=== PATIENT | female | born 1975 | race Caucasian/White ===

== ENCOUNTER → 2017-01-25 | Outpatient (CLI) | payer OTHER ==
--- NOTE | 2017-01-26 06:49 | US ---
EXAMINATION TYPE: US parathyroid/thyroid st tissue head/neck DATE OF EXAM: 01/25/2017 COMPARISON: NONE CLINICAL HISTORY: E83.52 ELEVATED CALCIUMparathyroid US THYROID GLAND SIZE: Right Lobe: 4.7 x 1.8 x 1.2 cm Overall Parenchyma: heterogenous Left Lobe: 3.9 x 1.6 x 1.0 cm Overall Parenchyma: heterogeneous Isthmus Thickness: 0.3 cm THYROID NODULES RIGHT: # of nodules measured on right: 1 1. 0.2 X 0.2 x 0.2 cm hypoechoic cystic nodule at the upper pole with well-defined margins. This n odule is wide as is tall and shows no intranodular vascularity. Prior size: no previous LEFT: # of nodules measured on left: 0 ISTHMUS: # of nodules measured in the isthmus: 0 PARATHYROID SURVEY: No Parathyroid glands are seen by US. Bilateral neck scanned, no evidence of lymphadenopathy. Thyroid gland is normal in size and heterogeneous in appearance, tiny nodule is seen in the right thy roid lobe. No suspicious extra thyroid nodules are seen to suggest parathyroid adenoma. IMPRESSION: No worrisome adjacent parathyroid nodules are seen to suggest parathyroid adenoma.
== END | disposition home or self-care (01) ==
LOC: RADUSWWP 16:57
PROVIDERS: ATTEND Internal Medicine
DX: E83.52 Hypercalcemia (principal)
CPT/HCPCS: 76536

== ENCOUNTER → 2023-08-27 | Outpatient (CLI) | payer MEDICARE, OTHER ==
--- NOTE | 2023-08-27 11:42 | MM ---
Reason for Exam: Follow-up of a probably benign lesion. Patient History: Menarche at age 13. Patient has no children. Premenopausal. Hormonal Contraceptives for 10 years from age 21 until age 31. 1989, Bilateral Reduction. Mother had breast cancer, age 55. Risk Values: Anastasia 5 year model risk: 1.7%. NCI Lifetime model risk: 17.5%. Staff Notes: BASELINE STUDY. Tissue Density: There are scattered areas of fibroglandular density. Findings: Analyzed By CAD. Nodular density upper outer right breast approximately 13 cm from the nipple measuring 9 mm. Ultrasound recommended. No nodules within the left breast. No suspicious calcifications present. Overall Assessment: Incomplete: need additional imaging evaluation, BI-RAD 0 Management: Diagnostic Breast Ultrasound of the right breast. . Results were given to the patient verbally at the time of exam. Patient should continue monthly self-breast exams. A clinical breast exam by your physician is recommended on an annual basis. This exam should not preclude additional follow-up of suspicious palpable abnormalities. Note on Anastasia scores and lifetime risk: 1. A Anastasia score greater than 3% is considered moderate risk. If this is the case, consider specialist referral to assess eligibility for a risk reducing agent. 2. If overall lifetime risk for the development of breast cancer is 20% or higher, the patient may qualify for future screening with alternating mammogram and breast MRI. Electronically signed and approved by: John Bee M.D. Radiologis
--- NOTE | 2023-08-27 12:32 | USB ---
Patient History: Menarche at age 13. Patient has no children. Premenopausal. Hormonal Contraceptives for 10 years from age 21 until age 31. 1990, Bilateral Reduction. Mother had breast cancer, age 55. Risk Values: Anastasia 5 year model risk: 1.7%. NCI Lifetime model risk: 17.5%. Technique: Method: Targeted. Findings: The upper outer quadrant of the right breast, the axilla of the right breast and the retroareolar of the right breast were scanned. No solid or cystic masses are identified.. Overall Assessment: Probably benign, BI-RAD 3 Management: Diagnostic Mammogram of the right breast in 6 months. A clinical breast exam by your physician is recommended on an annual basis and results should be correlated with mammographic findings. This exam should not preclude additional follow-up of suspicious palpable abnormalities. Results were given to the patient verbally at the time of exam. Electronically signed and approved by: John Bee M.D. Radiologis
== END | disposition home or self-care (01) ==
LOC: RADMAMWWP 09:54
PROVIDERS: ATTEND Internal Medicine Geriatric Medicine
DX: Z12.31 Encounter for screening mammogram for malignant neoplasm of breast (principal); Z80.3 Family history of malignant neoplasm of breast
CPT/HCPCS: 77066; 76642; G0279; 77062

== ENCOUNTER 2023-11-23 09:19 | Day surgery (SDC) | payer MEDICARE, OTHER ==
[2023-11-17 16:14] VITALS: BMI 29.2
[~2023-11-23 09:19] MED LIST: LIDOCAINE 1% (10MG/ML) FOR IV START INTRADERMA PRN
[2023-11-23] MEDS: IV FLUID CONTINUATION 1,000 ML IV ONE (09:55)
[2023-11-23 10:10] VITALS: TEMP 96.7
[2023-11-23] MEDS: LACTATED RINGERS 1,000 ML IV SCH (10:12)
[2023-11-23 10:17] LABS: Glucose,Whole Blood 99 mg/dL (70-110)
[2023-11-23] MEDS ORDERED: PROPOFOL 10 MG/ML 20 ML VIAL IV ONE (10:36)
--- NOTE | 2023-11-23 10:38 | P.GSHP ---
History of Present Illness H&P Date: 11/23/23 Chief Complaint: Colon cancer screening 48-year-old female here for colonoscopy. No bowel complaints. No family history of colon cancer. She has not had a colonoscopy in the past. Past Medical History Past Medical History: Eye Disorder, Hyperlipidemia, Musculoskeletal Disorder Additional Past Medical History / Comment(s): BLIND IN BOTH EYES. 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 MULTIPLE EYE SURGERIES-HAS BILAT ARTIFICAL EYES. Z-CUT RT ANKLE. GROWTH PLATE TURNED LT KNEE Past Anesthesia/Blood Transfusion Reactions: Postoperative Nausea & Vomiting (PONV) Smoking Status: Never smoker - Past Family History Mother Family Medical History: Cancer Additional Family Medical History / Comment(s): BREAST Father History Unknown: Yes Family Medical History: Unable to Obtain Medications and Allergies Home Medications Medication Instructions Recorded Confirmed Type Ergocalciferol [Vitamin D2 (1250 1,250 mcg PO Q14D 11/17/23 11/23/23 History Mcg = [id number] Iu)] Janine-Eye Drops 1 drop BOTH EYES TID PRN 11/17/23 11/23/23 History Neomycin/Polymyxin B/Dexametha 1 drop BOTH EYES BID PRN 11/17/23 11/23/23 History [Maxitrol Ophth Susp] Pravastatin Sodium [Pravachol] 40 mg PO HS 11/17/23 11/23/23 History Allergies Allergy/AdvReac Type Severity Reaction Status Date / Time ketorolac Allergy Rash/Hives Verified 11/23/23 10:10 Surgical - Exam Vital Signs Temp Pulse Resp BP Pulse Ox 96.7 F L 87 18 158/78 96 11/23/23 10:11/23/23 10:00 11/23/23 10:11/23/23 10:11/23/23 10:00 Physical exam: General: Well-developed, well-nourished HEENT: Normocephalic, sclerae nonicteric Abdomen: Nontender, nondistended Extremities: No edema Neuro: Alert and oriented Assessment and Plan (1) Colon cancer screening Narrative/Plan: Will proceed with colonoscopy at this time. Current Visit: Yes Status: Acute Code(s): Z12.11 - ENCOUNTER FOR SCREENING FOR MALIGNANT NEOPLASM OF COLON SNOMED Code(s): 799357335
--- NOTE | 2023-11-23 10:51 | P.PCN ---
Date of Procedure: 11/23/23 Procedure(s) Performed: PREOPERATIVE DIAGNOSIS: Colon cancer screening POSTOPERATIVE DIAGNOSIS: Normal exam PROCEDURE: Colonoscopy ANESTHESIA: MAC SURGEON: Kye Pal M.D. SPECIMENS: None ENDOSCOPIC PROCEDURE: The patient was placed on the endoscopy table in the left decubitus position. The Olympus colonoscope was inserted into the anus and passed under direct visualization to the base of the cecum. The appendiceal orifice was visualized. From that point the scope was slowly withdrawn inspecti ng all surfaces carefully. There were no neoplastic inflammatory or polypoid lesions throughout the cecum, ascending, transverse, descending, sigmoid and rectum. There was no visible diverticulosis noted. Digital rectal examination was normal. The patient was taken to the recovery room in stable condition per anesthesia guidelines. RECOMMENDATIONS: Resume diet. Repeat colonoscopy 10 years.
[2023-11-23 10:57] VITALS: PULSE 63
[2023-11-23 11:09] VITALS: BP 111/76; RESP 16
== END 2023-11-23 11:50 | disposition home or self-care (01) ==
LOC: ORWHC2ENDO 09:19
PROVIDERS: ATTEND Surgery
DX: Z12.11 Encounter for screening for malignant neoplasm of colon (principal); E78.5 Hyperlipidemia, unspecified; G80.9 Cerebral palsy, unspecified; H91.90 Unspecified hearing loss, unspecified ear; H54.8 Legal blindness, as defined in USA; Z88.8 Allergy status to other drugs, medicaments and biological substances; Z79.899 Other long term (current) drug therapy
CPT/HCPCS: 84703; J2704; G0121; 45378

== ENCOUNTER → 2024-02-29 | Outpatient (CLI) | payer MEDICARE, OTHER ==
--- NOTE | 2024-02-29 13:32 | MM ---
Reason for Exam: Follow-up at short interval from prior study. Last screening mammogram was performed 6 month(s) ago. Patient History: Menarche at age 13. Patient has no children. Premenopausal. Hormonal Contraceptives for 10 years from age 21 until age 31. 1989, Bilateral Reduction. Mother had breast cancer, age 55. Last menstrual period: 02/17/2024 Risk Values: Anastasia 5 year model risk: 1.8%. NCI Lifetime model risk: 17.3%. Prior Study Comparison: 08/27/2023 Right US breast limited RT, [facility]. 08/27/2023 Bilateral MG 3D diag mammo w/cad LISA, [facility]. Tissue Density: The breasts are heterogeneously dense, which may obscure small masses. Findings: Analyzed By CAD. No Evidence for mass or distortion. No suspicious microcalcifications. Overall Assessment: Negative, BI-RAD 1 Management: Screening Mammogram of both breasts in 1 year. . Results were given to the patient verbally at the time of exam. Patient should continue monthly self-breast exams. A clinical breast exam by your physician is recommended on an annual basis. This exam should not preclude additional follow-up of suspicious palpable abnormalities. Note on Anastasia scores and lifetime risk: 1. A Anastasia score greater than 3% is considered moderate risk. If this is the case, consider specialist referral to assess eligibility for a risk reducing agent. 2. If overall lifetime risk for the development of breast cancer is 20% or higher, the patient may qualify for future screening with alternating mammogram and breast MRI. Electronically signed and approved by: John Bee M.D. Radiologis
== END | disposition home or self-care (01) ==
LOC: RADMAMWWP 12:49
PROVIDERS: ATTEND Internal Medicine Geriatric Medicine
DX: R92.8 Other abnormal and inconclusive findings on diagnostic imaging of breast (principal); Z80.3 Family history of malignant neoplasm of breast; R92.333 Mammographic heterogeneous density, bilateral breasts
CPT/HCPCS: 77066; G0279; 77062